=== PATIENT | female | born 1930 | race Caucasian/White ===

== ENCOUNTER 2018-05-21 19:56 | Emergency (ER) | payer MEDICARE, BC ==
[~2018-05-21] VITALS: Ht 160 cm; Wt 81.8 kg
[~2018-05-21 19:56] MED LIST: CELEXA40 MG PO; TENORMIN100 MG PO; TIROSINT137 MCG PO; ULTRAM50 MG PO
[2018-05-21 20:05] VITALS: Ht 160 cm; Wt 81.8 kg
[2018-05-21 22:54] VITALS: BP 138/76
== END 2018-05-21 22:55 | disposition home or self-care (01) ==
LOC: D.ER 19:56
DX: M25.562 Pain in left knee (principal); I10 Essential (primary) hypertension

== ENCOUNTER 2021-03-06 17:01 | Emergency (ER) | payer MEDICARE ==
[~2021-03-06] VITALS: Ht 160 cm; Wt 77.3 kg
[2021-03-06 17:18] VITALS: Ht 160 cm; Wt 77.3 kg
[2021-03-06 19:05] VITALS: BP 157/81
== END 2021-03-06 19:05 | disposition home or self-care (01) ==
LOC: D.ER 17:01
DX: M19.90 Unspecified osteoarthritis, unspecified site (principal); M25.562 Pain in left knee; I10 Essential (primary) hypertension